=== PATIENT | male | born 1980 | race Caucasian/White ===

== ENCOUNTER 2018-04-09 09:23 | Inpatient (IN) | payer MEDICAID, OTHER ==
[~2018-04-09 09:23] MED LIST: LIDOCAINE 2% (SDV) 5 ML INJ
[2018-04-09] MEDS: LIDOCAINE/MYLANTA 40 ML BTL PO (10:38)
[2018-04-09] MEDS: FAMOTIDINE 20 MG TAB PO (10:38)
[2018-04-09 10:56] LABS: ADD MAN DIFF? NO
[2018-04-09 11:03] LABS: WHITE BLOOD COUNT 17.1 10^3/ul (4.8-10.8)
[2018-04-09 11:03] LABS: ABNORMAL IP MESSAGE 1; BASOPHILS % 0.2 % (0.0-2.0); EOSINOPHILS % 0.2 % (0.0-7.0); HEMATOCRIT 42.8 % (42.0-52.0); LYMPHOCYTES # 1.5 10^3/ul (0.8-2.9); LYMPHOCYTES % 8.6 % (15.0-51.0); MEAN CORPUSCULAR HEMOGLOBIN 25.7 pg (29.0-33.0); MEAN CORPUSCULAR HGB CONC 32.7 g/dl (32.0-37.0); MEAN CORPUSCULAR VOLUME 78.7 fl (82.0-101.0); MEAN PLATELET VOLUME 12.1 fl (7.4-10.4); MONOCYTE # 1.9 10^3/ul (0.3-0.9); MONOCYTES % 11.3 % (0.0-11.0); NEUTROPHIL # 13.6 10^3/ul (1.6-7.5); NEUTROPHILS % 79.4 % (39.0-77.0); PLATELET COUNT 298 10^3/UL (140-415); POSITIVE DIFF @See below; RED BLOOD COUNT 5.44 10^6/ul (4.70-6.10); RED CELL DISTRIBUTION WIDTH 14.8 % (11.5-14.5)
[2018-04-09 11:15] LABS: ADD UMIC YES; UR ASCORBIC ACID NEGATIVE (NEGATIVE); UR BILIRUBIN (Dip) NEGATIVE (NEGATIVE); UR BLOOD (Dip) NEGATIVE (NEGATIVE); UR CLARITY CLEAR (CLEAR); UR COLOR YELLOW (YELLOW); UR GLUCOSE (Dip) NEGATIVE (NEGATIVE); UR KETONES (Dip) 1+ mg/dL (NEGATIVE); UR LEUKOCYTE ESTERASE (Dip) NEGATIVE Leu/ul (NEGATIVE); UR MUCUS MODERATE /HPF (NONE SEEN); UR NITRITE (Dip) NEGATIVE (NEGATIVE); UR RBC 1 /HPF (0-5); UR SPECIFIC GRAVITY (Dip) 1.024 (1.003-1.030); UR TOTAL PROTEIN (Dip) 1+ mg/dl (NEGATIVE); UR UROBILINOGEN (Dip) 2+ mg/dL (NEGATIVE); UR WBC 2 /HPF (0-5)
[2018-04-09] MEDS: morphine 2 MG INJ IV (11:20)
[2018-04-09] MEDS: ONDANSETRON 4 MG INJ IV (11:20)
[2018-04-09] MEDS: LACTATED RINGER'S 1,000 ML IV (11:21)
[2018-04-09] MEDS: PIPER-TAZO 3.375 GM IV (PMX) 100 ML IVPB ×3 (11:21→21:53)
[2018-04-09 11:34] LABS: ALANINE AMINOTRANSFERASE 20 IU/L (13-69); ALBUMIN 4.3 g/dl (3.3-4.9); ALBUMIN/GLOBULIN RATIO 1.13; ALKALINE PHOSPHATASE 67 IU/L (42-121); ANION GAP 18 (8-16); ASPARTATE AMINO TRANSFERASE 28 IU/L (15-46); BILIRUBIN,INDIRECT 0.7 mg/dl (0-1.1); BILIRUBIN,TOTAL 0.7 mg/dl (0.2-1.3); BLOOD UREA NITROGEN 16 mg/dl (7-20); CALCIUM 9.3 mg/dl (8.4-10.2); CARBON DIOXIDE 27 mmol/L (21-31); CHLORIDE 103 mmol/L (97-110); CREATININE 0.76 mg/dl (0.61-1.24); GLUCOSE 108 mg/dl (70-220); LIPASE 24 U/L (23-300); SODIUM 144 mmol/L (135-144); TOTAL PROTEIN 8.1 g/dl (6.1-8.1)
[2018-04-09] MEDS: morphine 4 MG/ML VIAL IV (11:52)
[2018-04-09] MEDS ORDERED: ONDANSETRON 4 MG INJ IV ×3 (13:00→18:00)
[2018-04-09] MEDS ORDERED: NACL 0.9% 3 ML SYG IV (13:00)
[2018-04-09] MEDS ORDERED: HYDROCODONE/APAP (5/325) TAB PO (13:00)
[2018-04-09] MEDS ORDERED: morphine 2 MG INJ IV (13:00)
[2018-04-09] MEDS ORDERED: MAGNESIUM HYDROXIDE 30ML CUP PO (13:00)
[2018-04-09] MEDS ORDERED: ACETAMINOPHEN 325 MG TAB PO ×2 (13:00)
[2018-04-09] MEDS ORDERED: DOCUSATE SODIUM 100 MG CAP PO (13:00)
[2018-04-09] MEDS: DEXTROSE 5%-0.45% NACL 1,000 ML IV (15:41)
[2018-04-09] MEDS ORDERED: ROPIVACAINE 0.2% 20 ML VIAL (17:44)
[2018-04-09] MEDS ORDERED: ROCURONIUM 50 MG INJ (17:44)
[2018-04-09] MEDS ORDERED: PROPOFOL 20 ML (17:44)
[2018-04-09] MEDS ORDERED: ALBUTEROL 0.083% (NEB) 2.5 MG/3 ML AMP HHN (18:00)
[2018-04-09] MEDS ORDERED: HYDROmorphONE 1 MG/5 ML IV SYRINGE IV ×2 (18:00)
[2018-04-09] MEDS ORDERED: LABETALOL HCL 20MG INJ IV (18:00)
[2018-04-09] MEDS ORDERED: FENTAnyl 50 MCG/ML VIAL IV ×3 (18:00)
[2018-04-09] MEDS ORDERED: METOCLOPRAMIDE 10 MG INJ IV (18:00)
[2018-04-09] MEDS ORDERED: EPHEDrine SULFATE 50 MG/5 ML SYG IV (18:00)
[2018-04-09] MEDS ORDERED: DIPHENHYDRAMINE 50 MG INJ IV (18:00)
[2018-04-09] MEDS ORDERED: KETOROLAC 30 MG INJ IV (18:00)
[2018-04-09] MEDS ORDERED: OXYCODONE/ACETAMINOPHEN (5/325) TAB PO ×2 (18:00)
[2018-04-09] MEDS ORDERED: hydrALAzine 20 MG INJ IV (18:00)
[2018-04-09] MEDS ORDERED: MEPERIDINE 25 MG INJ IV (18:00)
[2018-04-09] MEDS ORDERED: MIDAZOLAM 1 MG/ML 2 ML INJ IV (18:00)
[2018-04-09] MEDS ORDERED: DEXAMETHASONE 4 MG/ML 1 ML INJ (18:32)
[2018-04-09] MEDS ORDERED: ONDANSETRON 4 MG INJ (18:33)
[2018-04-09] MEDS ORDERED: SUGAMMADEX SODIUM 200 MG/2 ML VIAL IV (18:43)
[2018-04-09] MEDS: HYDROmorphONE 1 MG/5 ML IV SYRINGE IV (19:16)
[2018-04-10] MEDS: DEXTROSE 5%-0.45% NACL 1,000 ML IV ×2 (01:08→13:38)
[2018-04-10] MEDS: HYDROCODONE/APAP (5/325) TAB PO ×2 (04:04→10:46)
[2018-04-10] MEDS: PIPER-TAZO 3.375 GM IV (PMX) 100 ML IVPB ×3 (05:49→22:11)
[2018-04-10] MEDS: PANTOPRAZOLE 40 MG INJ IV (05:50)
[2018-04-10 06:09] LABS: ADD MAN DIFF? NO; BASOPHILS % 0.2 % (0.0-2.0); HEMATOCRIT 40.4 % (42.0-52.0); HEMOGLOBIN 13.3 g/dl (14.0-18.0); LYMPHOCYTES # 0.8 10^3/ul (0.8-2.9); LYMPHOCYTES % 5.6 % (15.0-51.0); MEAN CORPUSCULAR HEMOGLOBIN 25.9 pg (29.0-33.0); MEAN CORPUSCULAR HGB CONC 32.9 g/dl (32.0-37.0); MEAN CORPUSCULAR VOLUME 78.8 fl (82.0-101.0); MEAN PLATELET VOLUME 11.9 fl (7.4-10.4); MONOCYTE # 1.1 10^3/ul (0.3-0.9); MONOCYTES % 7.2 % (0.0-11.0); NEUTROPHIL # 12.8 10^3/ul (1.6-7.5); NEUTROPHILS % 86.6 % (39.0-77.0); PLATELET COUNT 300 10^3/UL (140-415); RED BLOOD COUNT 5.13 10^6/ul (4.70-6.10); RED CELL DISTRIBUTION WIDTH 14.8 % (11.5-14.5)
[2018-04-10 06:09] LABS: WHITE BLOOD COUNT 14.7 10^3/ul (4.8-10.8)
[2018-04-10 06:40] LABS: ALANINE AMINOTRANSFERASE 154 IU/L (13-69); ALBUMIN 3.7 g/dl (3.3-4.9); ALBUMIN/GLOBULIN RATIO 1.02; ALKALINE PHOSPHATASE 154 IU/L (42-121); ANION GAP 13 (8-16); ASPARTATE AMINO TRANSFERASE 116 IU/L (15-46); BILIRUBIN,INDIRECT 0.6 mg/dl (0-1.1); BILIRUBIN,TOTAL 0.6 mg/dl (0.2-1.3); BLOOD UREA NITROGEN 13 mg/dl (7-20); CALCIUM 9.1 mg/dl (8.4-10.2); CARBON DIOXIDE 30 mmol/L (21-31); CHLORIDE 103 mmol/L (97-110); CREATININE 0.68 mg/dl (0.61-1.24); GLUCOSE 136 mg/dl (70-220); POTASSIUM 4.4 mmol/L (3.5-5.1); SODIUM 142 mmol/L (135-144); TOTAL PROTEIN 7.3 g/dl (6.1-8.1)
[2018-04-10 13:16] LABS: ALANINE AMINOTRANSFERASE 163 IU/L (13-69); ALBUMIN 3.6 g/dl (3.3-4.9); ALKALINE PHOSPHATASE 149 IU/L (42-121); ASPARTATE AMINO TRANSFERASE 118 IU/L (15-46); BILIRUBIN,INDIRECT 0.6 mg/dl (0-1.1); BILIRUBIN,TOTAL 0.6 mg/dl (0.2-1.3); TOTAL PROTEIN 6.8 g/dl (6.1-8.1)
[2018-04-10] MEDS: POLYETHYLENE GLYCOL 17 GM PACKET PO (14:26)
[2018-04-10] MEDS: SENNA/DOCUSATE NA (8.6MG/50MG) TAB PO ×2 (14:26→20:40)
[2018-04-11] MEDS: PIPER-TAZO 3.375 GM IV (PMX) 100 ML IVPB ×2 (06:09→13:30)
[2018-04-11] MEDS: PANTOPRAZOLE 40 MG INJ IV (06:09)
[2018-04-11] MEDS: POLYETHYLENE GLYCOL 17 GM PACKET PO (08:25)
[2018-04-11] MEDS: SENNA/DOCUSATE NA (8.6MG/50MG) TAB PO (08:25)
[2018-04-11 08:38] LABS: ALANINE AMINOTRANSFERASE 97 IU/L (13-69); ALBUMIN 3.7 g/dl (3.3-4.9); ALBUMIN/GLOBULIN RATIO 1.08; ALKALINE PHOSPHATASE 128 IU/L (42-121); ANION GAP 12 (8-16); ASPARTATE AMINO TRANSFERASE 34 IU/L (15-46); BILIRUBIN,INDIRECT 0.8 mg/dl (0-1.1); BILIRUBIN,TOTAL 0.8 mg/dl (0.2-1.3); BLOOD UREA NITROGEN 15 mg/dl (7-20); CARBON DIOXIDE 29 mmol/L (21-31); CHLORIDE 103 mmol/L (97-110); CREATININE 0.79 mg/dl (0.61-1.24); GLUCOSE 96 mg/dl (70-220); POTASSIUM 3.8 mmol/L (3.5-5.1); SODIUM 140 mmol/L (135-144); TOTAL PROTEIN 7.1 g/dl (6.1-8.1)
[2018-04-11] MEDS: LACTULOSE 30ML CUP PO (11:31)
[2018-04-11] MEDS: HYDROCODONE/APAP (5/325) TAB PO (15:17)
== END 2018-04-11 15:45 | disposition home or self-care (01) | DRG 343 ==
LOC: FTE 09:23 → PP2 12:40
PROC: 0DTJ4ZZ Resection of Appendix, Percutaneous Endoscopic Approach (ICD-10-PCS; principal; 2018-04-09 17:50)
DX: K35.80 Unspecified acute appendicitis (principal)
CPT/HCPCS: 36415; 74176; 80053; 80076; 81001; 83690; 83735; 85025; 88304; 96374; 96375; 96376; 99285-25